=== PATIENT | female | born 1995 | race Caucasian/White ===

== ENCOUNTER 2016-08-15 21:37 | Emergency (ER) | payer SELFPAY ==
[2016-08-15 21:40] VITALS: BP 121/76; PULSE 88; TEMP 97.8; BMI 23.0
--- NOTE | 2016-08-15 21:44 | PDOC ---
History of Present Illness - General Chief Complaint: Laceration Stated Complaint: LACERATION Time Seen by Provider: 08/15/16 21:43 History Source: Patient Exam Limitations: No Limitations - History of Present Illness Initial Comments: CHIEF COMPLAINT: 20 y/o female c/o nail injury to right hand. HISTORY OF PRESENT ILLNESS: The patient states she injured the 2nd finger of her right hand when locking her door this morning. She states part of her nail came off but she couldn't leave work so waited until now to be seen. She did clean and cover the area. She denies decreased ROM and numbness/tingling to affected finger. Vital signs on arrival are within normal limits. REVIEW OF SYSTEMS: GENERAL/CONSTITUTIONAL: No fever/chills. No weakness. No weight change. MUSCULOSKELETAL: +right 2nd finger pain. No neck or back pain. SKIN: No rash or easy bruising. NEUROLOGIC: No headache, vertigo, loss of consciousness, or loss of sensation. PHYSICAL EXAM: VITAL_SIGNS: within normal limits GENERAL_APPEARANCE: alert, cooperative, mild obvious discomfort. MENTAL_STATUS: speech clear, oriented X 3, responds appropriately to questions. NEURO: motor intact and sensory intact in injured extremity. EXTREMITIES: Full flexion and extension of DIP and PIP joint of 2nd digit of right hand. Distal 1/3 of finger nail of 2nd digit of right hand missing and bleeding. SKIN: warm, dry, good color. Past History - Past Medical History Allergies/Adverse Reactions: Allergies Allergy/AdvReac Type Severity Reaction Status Date / Time No Known Allergies Allergy Verified 08/15/16 21:37 Home Medications: Ambulatory Orders NK [No Known Home Medication] 06/09/15 Suicide Attempt (Hx): No Other medical history: none - Immunization History Immunization Up to Date: Yes - Psycho/Social/Smoking Cessation Hx Anxiety: No Suicidal Ideation: No Smoking Status: No Smoking History: Never smoked Have you smoked in the past 12 months: No Number of Cigarettes Smoked Daily: 0 Information on smoking cessation initiated: No Hx Alcohol Use: No Drug/Substance Use Hx: No Substance Use Type: None *Physical Exam - Vital Signs Last Vital Signs Temp Pulse Resp BP Pulse Ox 97.8 F 88 18 121/76 100 08/15/16 21:38 08/15/16 21:38 08/15/16 21:38 08/15/16 21:38 08/15/16 21:38 Medical Decision Making - Medical Decision Making A/P: 20 y/o female with distal nail avulsion of right 2nd finger. Cleaned area with bacitracin. Apply surgicel and covered with YO bandage. Instructed her to keep covered for 24 hours. Suggested after 24 hours she remove bandage and apply neosporin and recover. Instructed her to keep covered and clean until healed. Instructed her to return to the ER with any worsening or concerning symptoms. The patient verbalizes understanding of all instructions, has no further questions and is awaiting discharge. *DC/Admit/Observation/Transfer Diagnosis at time of Disposition: Nail avulsion, finger Qualifiers: Encounter type: initial encounter Qualified Code(s): S61.309A - Unspecified open wound of unspecified finger with damage to nail, initial encounter - Discharge Dispostion Disposition: HOME Condition at time of disposition: Good - Patient Instructions Printed Discharge Instructions: DI for Nail Avulsion Injury Additional Instructions: Discharge Instructions: -Keep the wound covered and dry for the next 24 hours -Remove dressing in 24 hours, apply neosporin and recover -Keep nail clean and apply neosporin and keep covered until healed -Return to the ER with any worsening or concerning symptoms
== END 2016-08-15 22:18 | disposition home or self-care (01) ==
LOC: JERFT 21:37
DX: S61.300A Unspecified open wound of right index finger with damage to nail, initial encounter (principal); W23.0XXA Caught, crushed, jammed, or pinched between moving objects, initial encounter; Y93.89 Activity, other specified; Y92.038 Other place in apartment as the place of occurrence of the external cause
CPT/HCPCS: 99281-25

== ENCOUNTER 2018-07-10 00:53 | Emergency (ER) | payer OTHER ==
[2018-07-10 01:40] VITALS: BP 110/65; PULSE 90; TEMP 98.3; BMI 25.0
[2018-07-10] MEDS ORDERED: IBUPROFEN 600 MG TABLET (FP) PO ONE ×2 (02:01→02:17)
--- NOTE | 2018-07-10 02:53 | PDOC ---
History of Present Illness - General Chief Complaint: Pain, Acute Stated Complaint: FEVER,FACIAL PAIN Time Seen by Provider: 07/10/18 01:57 History Source: Patient Exam Limitations: No Limitations - History of Present Illness Initial Comments: 07/10/18 02:50 HISTORY OF PRESENT ILLNESS: Sit 22-year-old woman who presents emergency Department for evaluation of subjective fevers, left side of face pain for the past 2 days. 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 She noted some of the children have been experiencing upper respiratory symptoms over the past couple days. She denies headaches, blurred vision, dizziness, chest pain, shortness of breath, abdominal pain, nausea, vomiting. No recent travel or sick contacts. PAST MEDICAL HISTORY: Denies past medical history SURGICAL HISTORY: Denies ALLERGIES: No known drug allergies REVIEW OF SYSTEMS General/Constitutional: +subjective fever. Denies weakness, weight change. HEENT: Denies change in vision. Denies ear pain or discharge. +sore throat. Cardiovascular: Denies chest pain or shortness of breath. Respiratory: Moist productive cough. Denies wheezing, or hemoptysis. Gastrointestinal: Denies nausea, vomiting, diarrhea or constipation. Denies rectal bleeding. Genitourinary: Denies dysuria, frequency, or change in urination. Musculoskeletal: Denies neck or back pain. Skin and breasts: Denies rash or easy bruising. Neurologic: Denies headache, vertigo, loss of consciousness, or loss of sensation. Psychiatric: Denies depression or anxiety. Endocrine: Denies increased thirst. Denies abnormal weight change. Hematologic/Lymphatic: Denies anemia, easy bleeding, or history of blood clots. Allergic/Immunologic: Denies hives or skin allergy. Denies latex allergy. PHYSICAL EXAM General Appearance: Well-appearing, appropriately dressed. No apparent distress , no intoxication. HEENT: EOMI, PERRLA, normal voice, TMs retracted bilaterally. No conjunctival pallor. No photophobia, scleral icterus. Oropharynx erythematous without lesions or exudate. Cobblestoning noted in the posterior. No nasal discharge present. Neck: Supple. Trachea midline. No tenderness, rigidity, carotid bruit, stridor , or thyromegaly. Nontender anterior cervical lymphadenopathy present. Respiratory/Chest: Lungs CTAB. No shortness of breath, chest tenderness, respiratory distress, accessory muscle use. No crackles, rales, rhonchi, stridor , wheezing, dullness Cardiovascular: RRR. S1, S2. No JVD, murmur, bradycardia, tachycardia. Vascular Pulses: Dorsalis-Pedis (R): 2+, Dorsalis-Pedis (L): 2+ Gastrointestinal/Abdominal: Normal bowel sounds. Abdomen soft, non-distended. No tenderness or rebound tenderness. No organomegaly, pulsatile mass, guarding, hernia, hepatomegaly, splenomegaly. Musculoskeletal/Extremities: Normal inspection. FROM of all extremities, normal capillary refill. Pelvis Stable. No CVA tenderness. No tenderness to extremities, pedal edema, swelling, erythema or deformity. Integumentary: Appropriate color, dry, warm. 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 Fully oriented, alert. Appropriate mood/affect. Motor strength 5/5. No appreciable EOM palsy, facial droop or sensory deficit. 07/10/18 06:10 Past History - Past Medical History Allergies/Adverse Reactions: Allergies Allergy/AdvReac Type Severity Reaction Status Date / Time No Known Allergies Allergy Verified 07/10/18 01:41 Home Medications: Ambulatory Orders NK [No Known Home Medication] 06/09/15 COPD: No - Immunization History Immunization Up to Date: Yes - Suicide/Smoking/Psychosocial Hx Smoking Status: No Smoking History: Never smoked Have you smoked in the past 12 months: No Number of Cigarettes Smoked Daily: 0 Information on smoking cessation initiated: No Hx Alcohol Use: No Drug/Substance Use Hx: No Substance Use Type: None *Physical Exam - Vital Signs Last Vital Signs Temp Pulse Resp BP Pulse Ox 98.3 F 90 19 110/65 99 07/10/18 00:53 07/10/18 00:53 07/10/18 00:53 07/10/18 00:53 07/10/18 00:53 ED Treatment Course - Medications Given in the ED: ED Medications Discontinued Medications Generic Name Dose Route Start Last Admin Trade Name Freq PRN Reason Stop Dose Admin Ibuprofen 600 mg 07/10/18 02:01 07/10/18 02:22 Motrin - PO 07/10/18 02:02 600 mg ONCE ONE Administration Medical Decision Making - Medical Decision Making 07/10/18 02:51 A/P: 22-year-old woman nasal pharyngitis Rapid strep testing is negative Motrin 600 mg orally now I'll discharge patient home with instructions for symptomatic treatment. Patient has verbalizes understanding of discharge instructions was satisfied with the care received today. *DC/Admit/Observation/Transfer Diagnosis at time of Disposition: Nasopharyngitis acute - Discharge Dispostion Disposition: HOME Condition at time of disposition: Fair Decision to Admit order: No - Referrals - Patient Instructions Additional Instructions: Rest, drink lots of fluids: Teas, water, soups, Pedialyte Saltwater gargles Steamy showers/seem to face break up mucus Avoid contact with others until fevers and cough resolved Lots of handwashing and good hygiene Continue [id number] medications for symptomatic relief Tylenol or Motrin for fever and pain Followup with private physician in one to 2 days as needed Return to emergency department for worsened symptoms, fevers, dehydration - Post Discharge Activity Forms/Work/School Notes: Back to Work
== END 2018-07-10 02:57 | disposition home or self-care (01) ==
LOC: JER 00:53
DX: J00 Acute nasopharyngitis [common cold] (principal)
CPT/HCPCS: 87070; 87880; 99282-25

== ENCOUNTER 2020-10-14 14:22 | Emergency (ER) | payer OTHER ==
[2020-10-14 14:28] VITALS: BP 102/66; PULSE 98; TEMP 98.1; BMI 23.1
== END 2020-10-14 17:04 | disposition home or self-care (01) ==
LOC: JERFT 14:22
DX: N61.0 Mastitis without abscess (principal)
CPT/HCPCS: 99283-25

== ENCOUNTER 2020-10-16 13:37 | Emergency (ER) | payer OTHER ==
[2020-10-16 13:52] VITALS: BP 100/66; PULSE 82; TEMP 97; BMI 23.8
== END 2020-10-16 14:53 | disposition home or self-care (01) ==
LOC: JERFT 13:37
DX: L03.313 Cellulitis of chest wall (principal); Z48.00 Encounter for change or removal of nonsurgical wound dressing
CPT/HCPCS: 99281-25

== ENCOUNTER 2021-09-16 17:16 | Emergency (ER) | payer OTHER ==
[2021-09-16 17:33] VITALS: BP 115/71; PULSE 95; RESP 18; TEMP 101.4; BMI 23.1
== END 2021-09-16 19:05 | disposition home or self-care (01) ==
LOC: JER 17:16
DX: U07.1 COVID-19 (principal)
CPT/HCPCS: 93005; 93010; 99285-25